=== PATIENT | female | born 1960 | race Caucasian/White ===

== ENCOUNTER 2017-02-08 09:46 | Emergency (ER) | payer BC, OTHER ==
[~2017-02-08] VITALS: Ht 165.1 cm; Wt 70.5 kg
[~2017-02-08 09:46] MED LIST: CYCL-259 PO; KETO10TA PO
[2017-02-08] MEDS ORDERED: MECLIZINE CHEWABLE 25 MG TAB ONE (10:27)
[2017-02-08] MEDS ORDERED: ONDANSETRON ODT 4 MG ONE (10:27)
[2017-02-08] MEDS ORDERED: ONDANSETRON ODT 4 MG PO ONE (10:30)
[2017-02-08] MEDS ORDERED: MECLIZINE CHEWABLE 25 MG TAB PO ONE (10:30)
[2017-02-08 10:44] LABS: HEMOGLOBIN 14.8 g/dL (11.7-16.4)
[2017-02-08 11:02] LABS: BLOOD UREA NITROGEN 15 mg/dL (7-18)
[2017-02-08 11:05] LABS: DIFF TOTAL CELLS COUNTED 100 CELL DIFF
[2017-02-08 11:08] LABS: ASPARTATE AMINO TRANSFERASE 16 U/L (15-37); VERIFY COUNTS? YES
[2017-02-08 12:29] VITALS: BP 117/84
== END 2017-02-08 12:32 | disposition home or self-care (01) ==
LOC: ED 12:02
DX: H81.10 Benign paroxysmal vertigo, unspecified ear (principal); R42 Dizziness and giddiness; Z86.718 Personal history of other venous thrombosis and embolism; Z90.710 Acquired absence of both cervix and uterus
CPT/HCPCS: 36415; 70450; 80053; 81003; 85025; 93005; 99285; Q0162